=== PATIENT | female | born 1955 | race Two or more races ===

== ENCOUNTER 2020-07-20 06:31 | Outpatient (CLI) | payer OTHER | END 2020-07-20 23:59 | disposition home or self-care (01) | LOC: LAB 06:31 | PROVIDERS: ATTEND Orthopaedic Surgery | DX: Z01.812 Encounter for preprocedural laboratory examination (principal); Z20.828 Contact with and (suspected) exposure to other viral communicable diseases; S83.241D Other tear of medial meniscus, current injury, right knee, subsequent encounter; X58.XXXD Exposure to other specified factors, subsequent encounter ==

== ENCOUNTER 2020-07-21 09:42 | Outpatient (CLI) | payer OTHER ==
[2020-07-21 11:06] LABS: BASOPHILS % (AUTO) 0.9 % (0.0-2.0); EOSINOPHILS % (AUTO) 1.1 % (0.0-7.0); HEMATOCRIT 39.5 % (31.2-41.9); HEMOGLOBIN 13.4 g/dL (10.9-14.3); LYMPHOCYTES # (AUTO) 1.8 K/uL (20.0-40.0); LYMPHOCYTES % (AUTO) 38.3 % (20.5-51.5); MEAN CORPUSCULAR HGB CONC 34 g/dL (32.3-35.6); MEAN CORPUSCULAR VOLUME 88.8 fL (75.5-95.3); MONOCYTES # (AUTO) 0.4 K/uL (2.0-10.0); MONOCYTES % (AUTO) 8.3 % (0.0-11.0); NEUTROPHILS # (AUTO) 2.4 K/uL (1.8-8.9); NEUTROPHILS % (AUTO) 51.4 % (38.5-71.5); PLATELET COUNT (AUTO) 233 K/uL (179-408); RED BLOOD CELL COUNT(AUTO) 4.45 MIL/uL (3.63-4.92); WHITE BLOOD COUNT (AUTO) 4.7 K/uL (3.8-11.8)
[2020-07-21 11:16] LABS: CREATININE 0.8 mg/dL (0.6-1.3); POTASSIUM 4.2 mmol/L (3.5-5.1)
[2020-07-21 11:21] LABS: BILIRUBIN,TOTAL 0.4 mg/dL (0.2-1.0); TOTAL PROTEIN, SERUM 8.1 g/dL (6.4-8.2)
[2020-07-21 11:33] LABS: *BILIRUBIN,URIN NEGATIVE (NEGATIVE); *CLARITY,URINE SLIGHTLY CLOUDY (CLEAR); *COLOR,URINE YELLOW (YELLOW); *KETONES,URINE NEGATIVE (NEGATIVE); *UROBILINOGEN,URINE 0.2 E.U./dl (NORMAL); LEUKOCYTE ESTERASE ,URINE 1+ (NEGATIVE); NITRITE, URINE NEGATIVE (NEGATIVE); UGLUCOSE NEGATIVE (NEGATIVE)
[2020-07-21 11:34] LABS: *BLOOD, URINE TRACE (NEGATIVE)
[2020-07-21 15:33] LABS: BACTERIA,URINE FEW /HPF (NONE SEEN); RBC,URINE 0-3 /HPF (0-3); SQUAMOUS EPITHELIAL CELL,UR FEW /HPF (NONE SEEN)
== END 2020-07-21 23:59 | disposition home or self-care (01) ==
LOC: LAB 09:42
PROVIDERS: ATTEND Internal Medicine
DX: Z01.812 Encounter for preprocedural laboratory examination (principal); S83.241A Other tear of medial meniscus, current injury, right knee, initial encounter; M94.261 Chondromalacia, right knee; X58.XXXA Exposure to other specified factors, initial encounter; Y93.89 Activity, other specified; Y92.89 Other specified places as the place of occurrence of the external cause; Y99.0 Civilian activity done for income or pay
CPT/HCPCS: 36415; 71045; 85025; 85730; 87086; 93005; A4663

== ENCOUNTER 2020-07-23 05:57 | Day surgery (SDC) | payer OTHER ==
[2020-07-23] MEDS ORDERED: IV NORMAL SALINE 1000 ML BAG IV ONE (05:58)
[2020-07-23] MEDS ORDERED: DEXAMETHASONE SOD PHOSPHATE 4 MG INJ IV ONE (05:58)
[2020-07-23] MEDS ORDERED: CEFAZOLIN 1 G VIAL IM ONE (05:58)
[2020-07-23] MEDS ORDERED: SEVOFLURANE 250 ML BOTTLE IH ONE (05:58)
[2020-07-23] MEDS ORDERED: LIDOCAINE-MPF 2% 5 ML VIAL IJ ONE (05:58)
[2020-07-23] MEDS ORDERED: PROPOFOL 200 MG/20 ML BOTTLE IV ONE (05:58)
[2020-07-23] MEDS ORDERED: ONDANSETRON 4 MG/2 ML VIAL IV ONE (05:58)
[2020-07-23] MEDS ORDERED: ESMOLOL HCL 100 MG/10 ML VIAL IV ONE (05:58)
[2020-07-23] MEDS ORDERED: MORPHINE SULFATE PF 10 MG/10 ML AMPUL IV ONE (09:30)
[2020-07-23] MEDS ORDERED: BUPIVACAINE/EPI PF 0.25% 30 ML VIAL ONE (09:31)
[2020-07-23] MEDS ORDERED: CLINDAMYCIN PHOSPHATE 900 MG/6 ML VIAL ONE (10:34)
[2020-07-23] MEDS ORDERED: KETOROLAC TROMETHAMINE 30 MG INJ ONE (12:02)
[2020-07-23] MEDS ORDERED: FENTANYL CITRATE 100 MCG/2 ML AMPUL ONE (12:18)
[2020-07-23] MEDS ORDERED: ONDANSETRON 4 MG/2 ML VIAL ONE (12:31)
[2020-07-23] MEDS ORDERED: TRAMADOL HCL 50 MG TABLET ONE (13:09)
== END 2020-07-23 14:00 | disposition home or self-care (01) ==
LOC: DS 05:57
PROVIDERS: ATTEND Orthopaedic Surgery
DX: S83.241A Other tear of medial meniscus, current injury, right knee, initial encounter (principal); S83.281A Other tear of lateral meniscus, current injury, right knee, initial encounter; M94.261 Chondromalacia, right knee; M65.88 Other synovitis and tenosynovitis, other site; M19.90 Unspecified osteoarthritis, unspecified site; Z88.0 Allergy status to penicillin; Z88.8 Allergy status to other drugs, medicaments and biological substances; Z90.49 Acquired absence of other specified parts of digestive tract; Z98.890 Other specified postprocedural states; Z79.899 Other long term (current) drug therapy; X58.XXXA Exposure to other specified factors, initial encounter; Y93.89 Activity, other specified; Y92.89 Other specified places as the place of occurrence of the external cause; Y99.8 Other external cause status
CPT/HCPCS: J0690; J1100; J1885; J2274; J2405; J3010; J3490; J7030; J7120